=== PATIENT | female | born 1945 | race Caucasian/White ===

== ENCOUNTER → 2018-06-08 | Outpatient (CLI) | payer MEDICARE ==
--- NOTE | 2018-06-08 11:50 | RAD ---
Examination: Bilateral Lower Extremity Venous Doppler Ultrasound History: Bilateral leg pain Comparison: None Procedure: Judd scale, color flow 2D and spectal waveform analysis images are obtained with and without compression in the area of the common femoral vein, superficial femoral vein - femoral vein junction, main femoral vein (superficial femoral vein) and popliteal vein. Veins of the proximal calf are also imaged. Findings: There is normal duplex flow, color flow and compressibility of all visualized vein segments. No evidence of deep venous thrombus is present. Impression: No evidence of DVT in the visualized bilateral lower extremity venous system. Electronically signed by: Tello De Santiago MD (06/08/2018 11:47 AM) [id number]
== END | disposition home or self-care (01) ==
LOC: US 11:02
PROVIDERS: ATTEND Orthopaedic Surgery Sports Medicine
DX: M79.604 Pain in right leg (principal); M79.605 Pain in left leg; R22.43 Localized swelling, mass and lump, lower limb, bilateral
CPT/HCPCS: 93970

== ENCOUNTER → 2020-02-27 | Outpatient (CLI) | payer MEDICARE ==
[~2020-02-27] MED LIST: AMLO-187 PO; DULO60CA6 PO; ESOM20CA PO; LEVO100T5 PO; LISI-334 PO; UBID100C40 PO; VITA1TAB31 PO
== END ==
LOC: LAB 14:00
PROVIDERS: ATTEND Internal Medicine Gastroenterology
DX: Z20.828 Contact with and (suspected) exposure to other viral communicable diseases (principal); D50.9 Iron deficiency anemia, unspecified
CPT/HCPCS: U0003

== ENCOUNTER → 2020-03-01 | Day surgery (SDC) | payer MEDICARE ==
[~2020-03-01] MED LIST changes: +IV RINGERS,LACTATED 1000ML 1,000 ML IV SCH; +PROPOFOL 10 MG/ML (20ML) VIAL. IV ONE
[2020-03-01 12:04] VITALS: BP 140/64
--- NOTE | 2020-03-05 19:07 | PATHOLOGY ---
[facility] Accession Number: [id number] . 01 Material submitted: . PART A: small bowel - SMALL BOWEL BIOPSY PART B: stomach - GASTRIC ANTRUM BODY BIOPSY. Modifiers: body PART C: esophagus - DISTAL ESOPHAGUS BIOPSY. Modifiers: distal . 01 Clinical history: . ANEMIA . 02 Diagnosis: A. Small bowel biopsies: - No significant pathologic abnormalities. . B. Gastric biopsies, gastric antrum and gastric body: - Chronic gastritis, mild to moderate. . C. Esophageal biopsies, distal esophagus: - Esophagitis with eosinophils. See comment. . (HARJITM:suze; 03/05/2020) [facility] 03/05/2020 1707 Local . 02 Comment: Sections of the small bowel biopsy reveal segments of duodenal mucosa. Where best oriented, the mucosal villi show no sprue-like changes or significant inflammatory changes. . Sections of the gastric biopsy reveal segments of gastric antral and gastric body mucosa showing congestion and mild to focal moderate chronic inflammation. A properly controlled immunoperoxidase stain for Helicobacter is negative for Helicobacter organisms. . Sections of the distal esophageal biopsy reveal segments of mildly hyperplastic squamous esophageal mucosa with focal contiguous gastric mucosa showing mild to moderate chronic inflammation. The squamous esophageal mucosa shows focally increased intraepithelial eosinophils. The differential diagnosis of esophagitis with eosinophils includes reflux esophagitis, "pill esophagitis", and eosinophilic esophagitis. Focally, there are up to 15-20 intraepithelial eosinophils within a high power field. This finding is suggestive of eosinophilic esophagitis. There is no evidence of Love's change, dysplasia, or malignancy. . (JACQUELINE:suze; 03/05/2020) . Special stain performed: Immunoperoxidase stain for Helicobacter on B1. . 02 Electronically signed: . Gordon Clements MD, Pathologist NPI- [id number] . 01 Gross description: . A. Received in formalin labeled "Afsaneh Real, small bowel BX" are multiple kelly-brown soft tissue fragments measuring in aggregate 0.8 x 0.4 x 0.1 cm. The specimen is submitted entirely in A1. . B. Received in formalin labeled "Farhan, Afsaneh, gastric antrum body BX" are multiple kelly-brown soft tissue fragments measuring in aggregate 0.6 x 0.6 x 0.1 cm. The specimen is submitted entirely in B1. . C. Received in formalin labeled "Farhan, Afsaneh, distal esophagus BX" are multiple kelly-brown soft tissue fragments measuring in aggregate 0.5 x 0.3 x 0.1 cm. The specimen is submitted entirely in C1. ([facility]; 03/03/2020) [facility] 03/03/2020 1329 Local . 02 Pathologist provided ICD-10: K29.50, K20.90 . 02 CPT . 202624, [id number], [id number], [id number] Specimen Comment: A courtesy copy of this report has been sent to [phone], [phone] Specimen Comment: [id number] Specimen Comment: Report sent to / DR VANEGAS Performed at: 01 [facility] [address], [place], [place] [id number] MD Antolin Castro MD Phone: [phone] Performed at: 02 [facility] [address], [place] [id number] MD Gordon Clements MD Phone: [phone]
== END | disposition home or self-care (01) ==
LOC: ENDOS 09:28
PROVIDERS: ATTEND Internal Medicine Gastroenterology
DX: D50.9 Iron deficiency anemia, unspecified (principal); K21.00 Gastro-esophageal reflux disease with esophagitis, without bleeding; K44.9 Diaphragmatic hernia without obstruction or gangrene; Q39.6 Congenital diverticulum of esophagus; K29.50 Unspecified chronic gastritis without bleeding; K31.89 Other diseases of stomach and duodenum; K64.0 First degree hemorrhoids; I10 Essential (primary) hypertension; E78.00 Pure hypercholesterolemia, unspecified; E03.9 Hypothyroidism, unspecified; Z90.49 Acquired absence of other specified parts of digestive tract; Z91.040 Latex allergy status; Z87.891 Personal history of nicotine dependence; Z79.899 Other long term (current) drug therapy; Z98.890 Other specified postprocedural states; Z88.0 Allergy status to penicillin; Z88.5 Allergy status to narcotic agent; Z88.8 Allergy status to other drugs, medicaments and biological substances
CPT/HCPCS: 43239; 45378; J2704; 88305; 88342

== ENCOUNTER → 2021-01-11 | Outpatient (CLI) | payer MEDICARE ==
[2020-03-01 12:04] VITALS: BP 140/64
[~2021-01-11] MED LIST changes: -DULO60CA6 PO; +DULO60CA7 PO; -IV RINGERS,LACTATED 1000ML 1,000 ML IV SCH; -LISI-334 PO; +LISI20TA18 PO; -PROPOFOL 10 MG/ML (20ML) VIAL. IV ONE
--- NOTE | 2021-01-12 09:03 | RAD ---
Examination: Nuclear Medicine Parathyroid Scan and SPECT Imaging: History: Hypercalcemia. Technique: 18 mCi Tc-99m sestamibi was administered intravenously and spot views were obtained on a g darin camera with early and delayed imaging. SPECT imaging was obtained as well. Findings/ impression: There is some washout of radiotracer from the thyroid gland on the delayed images with persistence of focal radiotracer in the right inferior pole of the thyroid gland suspicious for parathyroid adenoma . Consider follow-up ultrasound or CT for further evaluation. Electronically signed by: Tello De Santiago MD (01/12/2021 9:00 AM) [id number]
== END ==
LOC: NM 09:57
PROVIDERS: ATTEND Internal Medicine
DX: E83.52 Hypercalcemia (principal); E03.9 Hypothyroidism, unspecified
CPT/HCPCS: 78070; A9500